=== PATIENT | female | born 1940 | race Native Hawaiian/Other Pacific Islander ===

== ENCOUNTER 2018-05-20 21:23 | Emergency (ER) | payer MEDICARE ==
[2018-05-20 23:18] LABS: BASO # 0.04 K/mm3 (0.0-2.0); BASO % 0.4 % (0.0-3.0); EOS # 0.2 (0.0-0.7); EOS % 1.9 % (1.5-5.0); GRAN # 6.47 (1.4-6.5); HEMOGLOBIN 13.6 g/dL (12.0-16.0); LYMPH # 2.3 (1.2-3.4); LYMPH % 23.4 % (22.0-35.0); MEAN CELL VOLUME 95.9 fl (80.0-105.0); MEAN CORPUSCULAR HEMOGLOBIN 32.5 pg (25.0-35.0); MEAN CORPUSCULAR HGB CONC 33.8 g/dl (31.0-37.0); MEAN PLATELET VOLUME 9.8 fl (7.0-11.0); MONO # 0.7 (0.1-0.6); MONO % 7.3 % (1.0-6.0); RBC 4.19 10^6/uL (3.5-6.1); RED CELL DISTRIBUTION WIDTH 13.3 % (11.5-14.5); WHITE BLOOD COUNT 9.7 10^3/ul (4.5-11.0)
[2018-05-20 23:19] VITALS: TEMP 98.3
[2018-05-20 23:19] LABS: PROTHROMBIN TIME 10.2 SECONDS (9.4-12.5)
[2018-05-20 23:20] LABS: INR 0.9 (0.93-1.08); PARTIAL THROMBOPLASTIN TIME 30.6 Seconds (25.1-36.5)
[2018-05-20 23:31] LABS: ALB/GLOB RATIO 1.4 (1.1-1.8); ALBUMIN 4.5 g/dL (3.0-4.8); ALT/SGPT 22 U/L (7-56); AST/SGOT 25 U/L (14-36); BLOOD UREA NITROGEN 14 mg/dL (7-21); CALCIUM 9.2 mg/dL (8.4-10.5); GFR AFRICAN-AMERICAN > 60; GFR NON-AFRICAN AMERICAN > 60
[2018-05-20 23:42] LABS: TROPONIN I < 0.01 ng/mL
--- NOTE | 2018-05-21 00:55 | ED PDOC ---
Arrival/HPI - General Chief Complaint: Trauma Time Seen by Provider: 05/20/18 22:11 Historian: Patient - History of Present Illness Narrative History of Present Illness (Text): 05/21/18 00:52 78 year old female, with no significant past medical history, presents to the emergency department for evaluation s/p fall. Patient notes she slipped in the bath tub and hit her head. Patient's daughter states the patient fell several days ago. Patient denies any fever, chills, chest pain, shortness of breath, nausea, vomiting, diarrhea, back pain, neck pain, headache, dizziness, or any other complaints. Time/Duration: Prior to Arrival Symptom Onset: Sudden Activities at Onset: Light Context: Home Past Medical History - Provider Review Nursing Documentation Reviewed: Yes - Infectious Disease Hx of Infectious Diseases: None - Reproductive Menopause: Yes - Cardiac Hx Hypertension: Yes - Neurological Hx Dizziness: Yes - Musculoskeletal/Rheumatological Hx Arthritis: No - Psychiatric Hx Substance Use: No - Surgical History Other/Comment: cataract left eye - Anesthesia Hx Anesthesia: Yes Hx Anesthesia Reactions: No Hx Malignant Hyperthermia: No Family/Social History - Physician Review Nursing Documentation Reviewed: Yes Family/Social History: Unknown Family HX Smoking Status: Never Smoked Hx Alcohol Use: No Hx Substance Use: No Allergies/Home Meds Allergies/Adverse Reactions: Allergies No Known Allergies Allergy (Verified 05/20/18 22:06) Home Medications: Home Meds Medication Instructions Recorded Confirmed Amlodipine Besylate/Benazepril 1 each PO DAILY 05/20/18 05/20/18 [Amlodipine-Benazepril 10-20 mg] Atenolol [Tenormin] 25 mg PO DAILY 05/20/18 05/20/18 Atorvastatin [Lipitor] 20 mg PO DAILY 05/20/18 05/20/18 Review of Systems - Physician Review All systems were reviewed & negative as marked: Yes - Review of Systems Constitutional: Normal Eyes: Normal ENT: Normal Respiratory: Normal. absent: SOB, Cough Cardiovascular: Normal. absent: Chest Pain Gastrointestinal: Normal. absent: Abdominal Pain Genitourinary Female: Normal. absent: Dysuria, Frequency Musculoskeletal: Normal. absent: Back Pain, Neck Pain Skin: Normal. absent: Rash Neurological: Normal. absent: Headache, Dizziness Endocrine: Normal Hemo/Lymphatic: Normal Psychiatric: Normal Physical Exam Vital Signs Reviewed: Yes Vital Signs Temp Pulse Resp BP Pulse Ox 05/21/18 03:10 72 18 145/70 99 05/21/18 01:00 70 18 146/68 98 05/20/18 23:18 98.3 F 68 20 156/65 H 98 05/20/18 21:57 98.7 F 75 19 170/74 H 98 Temperature: Afebrile Blood Pressure: Normal Pulse: Regular Respiratory Rate: Normal Appearance: Positive for: Well-Appearing, Non-Toxic, Comfortable Pain Distress: None Mental Status: Positive for: Alert and Oriented X 3 - Systems Exam Head: Present: Atraumatic, Normocephalic, Other (Hematoma on scalp on left side of head) Pupils: Present: PERRL Extroacular Muscles: Present: EOMI Conjunctiva: Present: Normal Mouth: Present: Moist Mucous Membranes Neck: Present: Normal Range of Motion. No: Meningeal Signs, MIDLINE TENDERNESS , Paraspinal Tenderness Respiratory/Chest: Present: Clear to Auscultation, Good Air Exchange. No: Respiratory Distress, Accessory Muscle Use Cardiovascular: Present: Regular Rate and Rhythm, Normal S1, S2. No: Murmurs Abdomen: No: Tenderness, Distention, Peritoneal Signs Back: Present: Normal Inspection. No: CVA Tenderness, Midline Tenderness, Paraspinal Tenderness Upper Extremity: Present: Normal Inspection. No: Cyanosis, Edema Lower Extremity: Present: Normal Inspection. No: Edema, CALF TENDERNESS Neurological: Present: GCS=15, CN II-XII Intact, Speech Normal Skin: Present: Warm, Dry, Normal Color. No: Rashes Psychiatric: Present: Alert, Oriented x 3, Normal Insight, Normal Concentration Medical Decision Making ED Course and Treatment: 05/21/18 00:56 Impression: 78 year old female presents to the emergency department s/p fall. Plan: -- CT Head -- EKG -- Chest X-ray -- Reassess and disposition Progress Notes: 05/21/18 02:52 CT Head reviewed, shows: Brain: Periventricular hypoattenuation is likely related to small vessel disease. No hemorrhage. Ventricles: Unremarkable. No ventriculomegaly. Bones/joints: Unremarkable. No acute fracture. Soft tissues: Unremarkable. Sinuses: Unremarkable as visualized. No acute sinusitis. Mastoid air cells: Unremarkable as visualized. No mastoid effusion. IMPRESSION: No acute findings. - Lab Interpretations Lab Results: 05/20/18 22:50 05/20/18 22:50 Lab Results 05/20/18 22:50: PT 10.2, INR 0.90 L, APTT 30.6 05/20/18 22:50: WBC 9.7, RBC 4.19, Hgb 13.6, Hct 40.2, MCV 95.9, MCH 32.5, MCHC 33.8, RDW 13.3, Plt Count 279, MPV 9.8, Gran % 67.0, Lymph % (Auto) 23.4, [place] % (Auto) 7.3 H, Eos % (Auto) 1.9, Baso % (Auto) 0.4, Gran # 6.47, Lymph # (Auto ) 2.3, [place] # (Auto) 0.7 H, Eos # (Auto) 0.2, Baso # (Auto) 0.04 05/20/18 22:50: Sodium 145, Potassium 4.2, Chloride 108 H, Carbon Dioxide 22, Anion Gap 18, BUN 14, Creatinine 0.7, Est GFR ( Amer) > 60, Est GFR (Non- Af Amer) > 60, Random Glucose 122 H, Calcium 9.2, Total Bilirubin 0.1 L, AST 25 , ALT 22, Alkaline Phosphatase 64, Troponin I < 0.01, Total Protein 7.8, Albumin 4.5, Globulin 3.3, Albumin/Globulin Ratio 1.4 - RAD Interpretation Radiology Orders: 05/20/18 22:16 HEAD W/O CONTRAST [CT] Stat 05/20/18 22:17 CHEST PORTABLE [RAD] Stat - EKG Interpretation EKG Interpretation (Text): 05/21/18 04:33 nsr rate 67 normal ekg - Scribe Statement The provider has reviewed the documentation as recorded by the Scribcarlotta Couch All medical record entries made by the Scribe were at my direction and personally dictated by me. I have reviewed the chart and agree that the record accurately reflects my personal performance of the history, physical exam, medical decision making, and the department course for this patient. I have also personally directed, reviewed, and agree with the discharge instructions and disposition. Disposition/Present on Arrival - Present on Arrival History of DVT/PE: No History of Uncontrolled Diabetes: No Urinary Catheter: No History of Decub. Ulcer: No History Surgical Site Infection Following: None - Disposition Diagnosis: Head injury Disposition: HOME/ ROUTINE Discharge Instructions (ExitCare): Closed Head Injury (DC) Referrals: Armando Berman MD [Primary Care Provider] - Follow up with primary Forms: Diagnose.me (Tongan)
[2018-05-21 03:17] VITALS: BP 145/70; PULSE 72; RESP 18; O2SAT 99
--- NOTE | 2018-05-21 10:39 | CT ---
PROCEDURE: CT HEAD WITHOUT CONTRAST. HISTORY: Syncope COMPARISON: No prior study available comparison. TECHNIQUE: Axial computed tomography images were obtained through the head/brain without intravenous contrast. Radiation dose: Total exam DLP = 837.59 mGy-cm. This CT exam was performed using one or more of the following dose reduction techniques: Automated exposure control, adjustment of the mA and/or kV according to patient size, and/or use of iterative reconstruction technique. FINDINGS: HEMORRHAGE: No acute parenchymal, subarachnoid nor extra-axial hemorrhage. BRAIN: Mild moderate chronic periventricular white matter ischemic changes. Additionally, multiple more discrete deep and subcortical white matter as well as bilateral basal nuclei lacunar type infarcts also present. Note the possibility of a small hyperacute infarct cannot be excluded on this exam. VENTRICLES: Unremarkable. No hydrocephalus. CALVARIUM: No acute calvarial fractures. PARANASAL SINUSES: Unremarkable as visualized. No significant inflammatory changes. MASTOID AIR CELLS: Unremarkable as visualized. No inflammatory changes. OTHER FINDINGS: Changes left-sided cataract surgery IMPRESSION: No acute intracranial hemorrhage. Mild moderate chronic periventricular white matter ischemic changes. Additionally, multiple more discrete deep and subcortical white matter as well as bilateral basal nuclei lacunar type infarcts also present. Note the possibility of a small hyperacute infarct cannot be excluded on this exam.
--- NOTE | 2018-05-21 13:45 | CARD ---
APPROVED REPORT EKG Measurement Heart [id number] <Conclusion> Normal sinus rhythm Normal ECG
--- NOTE | 2018-05-21 16:17 | RAD ---
HISTORY: syncope COMPARISON: No prior. FINDINGS: LUNGS: Poor inspiration with low lung volumes, crowded bronchovascular markings and mild bibasilar atelectasis PLEURA: No significant pleural effusion identified, no pneumothorax apparent. CARDIOVASCULAR: . Cardiomegaly. OSSEOUS STRUCTURES: Mild multilevel degenerative spondylosis of the thoracic spine. There is a mild levosoliosis dextroscoliosis as well. VISUALIZED UPPER ABDOMEN: Normal. OTHER FINDINGS: None. IMPRESSION: Poor inspiration with low lung volumes, crowded bronchovascular markings and mild bibasilar atelectasis
== END 2018-05-21 03:10 | disposition home or self-care (01) ==
LOC: ED 21:23
DX: S09.90XA Unspecified injury of head, initial encounter (principal); W18.2XXA Fall in (into) shower or empty bathtub, initial encounter; Y93.E1 Activity, personal bathing and showering; Y92.009 Unspecified place in unspecified non-institutional (private) residence as the place of occurrence of the external cause; I10 Essential (primary) hypertension